=== PATIENT | female | born 1985 | race African-American/Black ===

== ENCOUNTER 2021-09-18 08:20 | Emergency (ER) | payer SELFPAY ==
[2021-09-18 08:45] VITALS: BMI 20.5
[2021-09-18] MEDS ORDERED: levETIRAcetam 500 MG TABLET (FP) PO ONE ×2 (09:06→09:17)
[2021-09-18 09:17] LABS: BASO % 0.4 % (0-2.0); EOS % 1.9 % (0-4.5); HEMATOCRIT 42.1 % (32.4-45.2); HEMOGLOBIN 13.7 GM/dL (10.7-15.3); LYMPH % 37.9 % (8-40); MCH 28.8 pg (25.7-33.7); MCHC 32.6 g/dl (32.0-36.0); MEAN CELL VOLUME 88.4 fl (80-96); MEAN PLT VOLUME 7.7 fl (7.5-11.1); MONO % 7.4 % (3.8-10.2); NEUT % 52.4 % (42.8-82.8); PLATELET COUNT 318 10^3/uL (134-434); RBC 4.76 M/mm3 (3.60-5.2); RDW 12.8 % (11.6-15.6)
[2021-09-18 09:31] LABS: CHLORIDE 106 mmol/L (98-107); SODIUM 142 mmol/L (136-145)
[2021-09-18 09:33] LABS: ANION GAP 5 MMOL/L (8-16); BLOOD UREA NITROGEN 9.6 mg/dL (7-18); CALCIUM 9.4 mg/dL (8.5-10.1); CO2 30 mmol/L (21-32); GLUCOSE,RANDOM 96 mg/dL (74-106)
[2021-09-18 09:36] LABS: CREATININE 0.7 mg/dL (0.55-1.3); SGOT/AST 11 U/L (15-37); SGPT/ALT 21 U/L (13-61)
[2021-09-18 09:38] LABS: BILIRUBIN,TOTAL 0.4 mg/dL (0.2-1); TOT PROT 7.5 g/dl (6.4-8.2)
[2021-09-18 09:39] LABS: ALK PHOS 66 U/L (45-117)
[2021-09-18 11:09] LABS: MAGNESIUM 2.1 mg/dL (1.8-2.4)
[2021-09-18 11:48] LABS: PH,URINE 7.5 (5.0-8.0); URINE APPEARANCE CLOUDY; URINE BILIRUBIN NEGATIVE (NEGATIVE); URINE COLOR YELLOW; URINE GLUCOSE (UA) NEGATIVE (NEGATIVE); URINE KETONE NEGATIVE (NEGATIVE); URINE LEUK ESTERASE NEGATIVE (NEGATIVE); URINE NITRITE NEGATIVE (NEGATIVE); URINE PROTEIN NEGATIVE (NEGATIVE); URINE UROBILINOGEN 0.2 mg/dL (0.2-1.0)
[2021-09-18 13:22] VITALS: BP 122/78; PULSE 64; TEMP 98.2
== END 2021-09-18 13:20 | disposition home or self-care (01) ==
LOC: JER 08:20
DX: G40.89 Other seizures (principal); R55 Syncope and collapse; Z86.79 Personal history of other diseases of the circulatory system
CPT/HCPCS: 36415; 70450-TC; 71046-TC-FY; 80053; 81003; 82550; 83735; 84484; 84703; 85025; 87086; 93005; 93010; 99285-25; C9803; U0003; U0005